=== PATIENT | female | born 1950 | race Caucasian/White ===

== ENCOUNTER 2018-02-04 07:36 | Day surgery (SDC) | payer MEDICARE ==
[2018-02-03 09:47] VITALS: BMI 35.4
[~2018-02-04 07:36] MED LIST: LACTATED RINGERS 1,000 ML IV SCH
[2018-02-04 09:02] VITALS: RESP 16; TEMP 99.2
[2018-02-04] MEDS ORDERED: LIDOCAINE 1% 20 ML VIAL (10MG/ML) FOR IV START INTRADERMA ONE (09:19)
[2018-02-04] MEDS ORDERED: PROPOFOL 10 MG/ML 20 ML VIAL IV ONE (10:00)
--- NOTE | 2018-02-04 10:15 | P.PCN ---
Date of Procedure: 02/04/18 Procedure(s) Performed: BRIEF HISTORY: Patient is a 67-year-old pleasant female, scheduled for an elective colonoscopy as a part of evaluation of prior history of colon polyps. Last colonoscopy was in 5 years ago that showed colon polyps. PROCEDURE PERFORMED: Colonoscopy. PREOPERATIVE DIAGNOSIS: History of colon polyps. IV sedation per Anesthesia. PROCEDURE: After informed consent was obtained, the patient, was brought into the endoscopy unit. IV sedation was administered by Anesthesia under continuous monitoring. Digital rectal examination was normal. Initially the Olympus CF- 160 flexible video colonoscope was then inserted in the rectum, gradually advanced into the cecum without any difficulty. Careful examination was performed as the scope was gradually being withdrawn. Ileocecal valve and the appendiceal orifice were visualized and appeared normal. Prep was excellent. Mucosa of the cecum, ascending colon, transverse colon, descending colon, sigmoid colon, and rectum appeared normal. Sigmoid diverticulosis seen Retroflexion was performed in the rectum and no lesions were seen. The patient tolerated the procedure well. IMPRESSION: Normal-appearing colon from rectum to cecum with no evidence of colonic neoplasia. Scattered sigmoid diverticulosis. RECOMMENDATIONS: Findings of this examination were discussed with the patient as well as her family. She was advised to have a repeat surveillance colonoscopy in 5 years..
[2018-02-04 10:36] VITALS: PULSE 65
[2018-02-04 10:56] VITALS: BP 121/77
== END 2018-02-04 11:13 | disposition home or self-care (01) ==
LOC: ORWHC2ENDO 07:36
PROVIDERS: ATTEND Internal Medicine Gastroenterology
DX: Z12.11 Encounter for screening for malignant neoplasm of colon (principal); K57.30 Diverticulosis of large intestine without perforation or abscess without bleeding; Z86.010 Personal history of colon polyps
CPT/HCPCS: 45378; J2704

== ENCOUNTER → 2018-04-28 | Outpatient (CLI) | payer MEDICARE ==
[2018-04-28 09:35] LABS: Basophils % (A) 1 %; Eosinophils # (A) 0.2 k/uL (0-0.7); Eosinophils % (A) 3 %; HCT 43.1 % (34.0-46.0); HGB 14.3 gm/dL (11.4-16.0); Lymphocytes # (A) 1.4 k/uL (1.0-4.8); Lymphocytes % (A) 25 %; MCH 31.1 pg (25.0-35.0); MCHC 33.3 g/dL (31.0-37.0); MCV 93.5 fL (80.0-100.0); Mean Platelet Volume 7.6; Monocytes # (A) 0.3 k/uL (0-1.0); Monocytes % (A) 5 %; Neutrophils # (A) 3.7 k/uL (1.3-7.7); Neutrophils % (A) 66 %; Platelet Count 192 k/uL (150-450); RBC 4.61 m/uL (3.80-5.40); RDW 12.6 % (11.5-15.5); WBC 5.7 k/uL (3.8-10.6)
[2018-04-28 10:36] LABS: ALT 32 U/L (9-52); AST 26 U/L (14-36); Albumin 4.2 g/dL (3.5-5.0); Alkaline Phosphatase 63 U/L (38-126); Blood Urea Nitrogen 16 mg/dL (7-17); Calcium 9.6 mg/dL (8.4-10.2); Carbon Dioxide 28 mmol/L (22-30); Cholesterol 161 mg/dL (<200); Glucose 103 mg/dL (74-99); HDL Cholesterol 52 mg/dL (40-60); LDL Cholesterol,Calculated 91 mg/dL (0-99); Potassium 4.9 mmol/L (3.5-5.1); Sodium 142 mmol/L (137-145); Total Bilirubin 0.5 mg/dL (0.2-1.3); Total Protein 6.6 g/dL (6.3-8.2); Triglycerides 89 mg/dL (<150)
[2018-04-28 10:37] LABS: Appearance,Urine Cloudy (Clear); Bacteria,Urine Rare /hpf; Bilirubin,Urine Negative (Negative); Blood,Urine Negative (Negative); Color,Urine Light Yellow; Glucose,Urine (UA) Negative (Negative); Ketones,Urine Negative (Negative); Leukocyte Esterase,Urine Large (Negative); Mucus,Urine Rare /hpf; Nitrite,Urine Negative (Negative); PH, Urine 6.5 (5.0-8.0); Protein,Urine Negative (Negative); RBC,Urine 2 /hpf (0-5); Specific Gravity,Urine 1.007 (1.001-1.035); Squamous Epithelial Cell,Urine 1 /hpf (0-4); Urobilinogen,Urine <2.0 mg/dL (<2.0); WBC,Urine 24 /hpf (0-5)
[2018-04-28 10:43] LABS: Anion Gap 10 mmol/L; Chloride 104 mmol/L (98-107)
== END | disposition home or self-care (01) ==
LOC: LABWHC1 08:49
PROVIDERS: ATTEND Family Medicine
DX: Z00.00 Encounter for general adult medical examination without abnormal findings (principal); R10.9 Unspecified abdominal pain; R10.812 Left upper quadrant abdominal tenderness; E66.9 Obesity, unspecified; R41.3 Other amnesia
CPT/HCPCS: 36415; 80053; 80061; 81001; 82607; 84443; 85025

== ENCOUNTER → 2018-05-05 | Outpatient (CLI) | payer MEDICARE ==
--- NOTE | 2018-05-05 13:23 | CT ---
EXAMINATION TYPE: CT abdomen pelvis w con DATE OF EXAM: 05/05/2018 HISTORY: R10.9 left flank pain,R10.812 LUQ tenderness per order. CT DLP: 1252.9mGycm Automated Exposure Control for Dose Reduction was Utilized. CONTRAST: CT scan of the abdomen and pelvis is performed with IV Contrast, patient injected with 100 mL of Isov ue 300. COMPARISON: None. FINDINGS: LUNG BASES: No significant abnormality is appreciated. LIVER/GB: Gallbladder is not visualized and presumed surgically absent. No cholecystectomy clips are noted. PANCREAS: No significant abnormality is seen. SPLEEN: No significant abnormality is seen. ADRENALS: No significant abnormality is seen. KIDNEYS: There is simple appearing 2.0 x 1.4 cm cyst laterally mid pole level left kidney axial image 33 series 7. There is subcentimeter cysts lower pole level right kidney image 45 series 7. Symmetric cortical medullary uptake and excretion is seen from both kidneys BOWEL: Small hiatal hernia is present. Oral contrast reaches level of proximal sigmoid colon. There i s no suspicious small or large bowel dilatation. Normal contrast-filled appendix is seen from cecum. There are diverticula in the sigmoid colon. UTERUS/ADNEXA: Uterus is surgically absent. Small thin-walled fluid collection in pelvic cul-de-sac a xial image 77 is nonspecific with thin rim enhancement, abscess cannot be excluded in appropriate cli nical setting. There is round 3 mm metallic density or foreign body just anterior and superior to thi s axial image 72. Scattered pelvic phleboliths are present. LYMPH NODES: No greater than 1cm abdominal or pelvic lymph nodes are appreciated. OSSEOUS STRUCTURES: There is moderate to severe multilevel spurring in the visualized spine. Spur dis c complex effaces anterior thecal sac at T12-L1 and L1-L2 levels on sagittal image 68. There is multi level facet arthropathy in the mid to lower lumbar spine. OTHER: There is small fat-containing umbilical hernia. IMPRESSION: 1. No significant finding is seen to account for patient's clinical symptoms of left-sided pain. 2. Incidental findings as noted above, attention to small pelvic fluid collection and 3 mm round meta llic pelvic foreign body.
== END | disposition home or self-care (01) ==
LOC: RADCTMAIN 10:41
PROVIDERS: ATTEND Family Medicine
DX: R10.812 Left upper quadrant abdominal tenderness (principal)
CPT/HCPCS: 74177; Q9967

== ENCOUNTER → 2018-09-16 | Outpatient (CLI) | payer MEDICARE ==
--- NOTE | 2018-09-16 15:26 | BD ---
EXAMINATION TYPE: Axial Bone Density DATE OF EXAM: 09/16/2018 COMPARISON: NONE CLINICAL HISTORY: Height: 63 Weight: 204.9 FRAX RISK QUESTIONS: Alcohol (3 or more units per day): no Family History (Parent hip fracture): no Glucocorticoids (More than 3mos): no (Ex: prednisone, prednisolone, methylprednisolone, dexamethasone, and hydrocortisone). History of Fracture in Adulthood: no Secondary Osteoporosis: 1. Type 1 Diabetes: no 2. Hyperthyroidism: no 3. Menopause before 45: no 4. Malnutrition: no 5. Chronic liver disease: no Rheumatoid Arthritis: no Current Tobacco Use: no RISK FACTORS HISTORY OF: Family History of Osteoporosis: no Active: sometimes Diet low in dairy products/other sources of calcium: yes Postmenopausal woman: age 50 Lost more than 2 inches in height since high school: no MEDICATIONS: anti-depressant Additional History: EXAM MEASUREMENTS: Bone mineral densitometry was performed using the [employer] System. Bone mineral density as measured about the Lumbar spine is: ----- L1-L4(G/cm2): 1.408 T Score Values are as follows: ----- L2: 1.3 ----- L3: 1.9 ----- L4: 2.1 ----- L1-L4: 1.9 Bone mineral density : baseline Bone mineral density about the R hip (g/cm2): 0.904 Bone mineral density about the L hip (g/cm2): 0.941 T Score values are as follows: -----R Neck: -1.0 -----L Neck: -0.7 -----R Total: 0.1 -----L Total: 0.2 Bone mineral density : baseline IMPRESSION: No evidence for osteoporosis or osteopenia. NOTE: T-SCORE=SD OF THE YOUNG ADULT MEAN.
--- NOTE | 2018-09-18 12:08 | MM ---
Reason for exam: screening (asymptomatic). Last mammogram was performed 4 years and 6 months ago. History: Patient is postmenopausal and had first child at age 37. Physical Findings: A clinical breast exam by your physician is recommended on an annual basis and results should be correlated with mammographic findings. MG 3D Screening Mammo W/Cad Bilateral CC and MLO view(s) were taken. Prior study comparison: August 13, 2017, mammogram, performed at [facility]. June 06, 2017, mammogram, performed at [facility]. August 07, 2016, mammogram, performed at [facility]. March 04, 2014, CAD bilateral diagnostic mammogram. There are scattered fibroglandular densities. There is no discrete abnormality. No significant changes when compared with prior studies. ASSESSMENT: Negative, BI-RAD 1 RECOMMENDATION: Routine screening mammogram of both breasts in 1 year.
== END ==
LOC: RADMAMWWP 11:35
PROVIDERS: ATTEND Family Medicine
DX: Z12.31 Encounter for screening mammogram for malignant neoplasm of breast (principal); Z13.820 Encounter for screening for osteoporosis
CPT/HCPCS: 77063; 77067; 77080

== ENCOUNTER → 2020-09-18 | Outpatient (CLI) | payer MEDICARE ==
--- NOTE | 2020-09-18 14:42 | BD ---
EXAMINATION TYPE: Axial Bone Density DATE OF EXAM: 09/18/2020 COMPARISON: 09/16/2018 CLINICAL HISTORY: Height: 62.5 IN Weight: 187 LBS RISK FACTORS HISTORY OF: Active: YES Diet low in dairy products/other sources of calcium: YES Postmenopausal woman: TOTAL HYST AGE 51 MEDICATIONS: Additional Medications: ANTI DEPRESSANT EXAM MEASUREMENTS: Bone mineral densitometry was performed using the [employer] System. Bone mineral density as measured about the Lumbar spine is: ----- L1-L4(G/cm2): 1.413 T Score Values are as follows: ----- L2: 1.6 ----- L3: 2.5 ----- L4: 1.9 ----- L1-L4: 1.9 Bone mineral density has: Increased 1.8% since study of: 09/16/2018 Bone mineral density about the R hip (g/cm2): 0.873 Bone mineral density about the L hip (g/cm2): 0.885 T Score values are as follows: -----R Neck: -1.2 -----L Neck: -1.1 -----R Total: -0.6 -----L Total: -0.1 Bone mineral density has: Decreased -5.9% since study of: 09/16/2018 IMPRESSION: No evidence for osteoporosis or osteopenia. NOTE: T-SCORE=SD OF THE YOUNG ADULT MEAN.
--- NOTE | 2020-09-19 13:15 | MM ---
Reason for exam: screening (asymptomatic). Last mammogram was performed 2 years ago. History: Patient is postmenopausal and had first child at age 37. Physical Findings: A clinical breast exam by your physician is recommended on an annual basis and results should be correlated with mammographic findings. MG 3D Screening Mammo W/Cad Bilateral CC and MLO view(s) were taken. Prior study comparison: September 16, 2018, bilateral MG 3d screening mammo w/cad. August 13, 2017, mammogram, performed at [facility]. There are scattered fibroglandular densities. No significant changes when compared with prior studies. ASSESSMENT: Negative, BI-RAD 1 RECOMMENDATION: Routine screening mammogram of both breasts in 1 year.
== END | disposition home or self-care (01) ==
LOC: RADBDWWP 12:31
PROVIDERS: ATTEND Family Medicine
DX: Z12.31 Encounter for screening mammogram for malignant neoplasm of breast (principal); Z78.0 Asymptomatic menopausal state
CPT/HCPCS: 77063; 77067; 77080

== ENCOUNTER → 2020-10-11 | Outpatient (CLI) | payer MEDICARE ==
--- NOTE | 2020-10-11 14:20 | US ---
EXAMINATION TYPE: US abdomen comp/pelvis limited DATE OF EXAM: 10/11/2020 COMPARISON: CT 05/05/2018 CLINICAL HISTORY: R10.10 Upper abd Pain, R10.9 abd pain. intermittent left flank pain for 3-4 years, cholecystectomy EXAM MEASUREMENTS: Liver Length: 14.7 cm Gallbladder Wall: Surgically absent CBD: 0.5 cm Spleen: 9.7 cm Right Kidney: 10.9 x 4.5 x 4.4 cm Left Kidney: 10.8 x 5.3 x 4.6 cm Pancreas: tail obscured by overlying bowel content Liver: appears wnl Gallbladder: Surgically absent CBD: appears wnl as visualized Spleen: wnl Right Kidney: no evidence of hydronephrosis Left Kidney: cystic area = 1.9 x 1.7 x 2.0cm stable compared to prior CT Upper IVC: wnl Abd Aorta: wnl Bladder: appears wnl Bilateral Jets Seen yes IMPRESSION: No acute abnormality. Postop changes.
== END | disposition home or self-care (01) ==
LOC: RADUSWWP 12:11
PROVIDERS: ATTEND Family Medicine
DX: Z90.49 Acquired absence of other specified parts of digestive tract (principal); R10.9 Unspecified abdominal pain; Z98.890 Other specified postprocedural states
CPT/HCPCS: 76700; 76857

== ENCOUNTER → 2022-01-16 | Outpatient (CLI) | payer MEDICARE ==
--- NOTE | 2022-01-16 14:32 | MM ---
Reason for exam: screening (asymptomatic). Last mammogram was performed 1 year and 4 months ago. History: Patient is postmenopausal and had first child at age 37. Physical Findings: A clinical breast exam by your physician is recommended on an annual basis and results should be correlated with mammographic findings. MG 3D Screening Mammo W/Cad Bilateral CC and MLO view(s) were taken. Prior study comparison: September 18, 2020, bilateral MG 3d screening mammo w/cad. September 16, 2018, bilateral MG 3d screening mammo w/cad. There are scattered fibroglandular densities. There is no discrete abnormality. No significant changes when compared with prior studies. ASSESSMENT: Negative, BI-RAD 1 RECOMMENDATION: Routine screening mammogram of both breasts in 1 year.
== END | disposition home or self-care (01) ==
LOC: RADMAMWWP 12:44
PROVIDERS: ATTEND Family Medicine
DX: Z12.31 Encounter for screening mammogram for malignant neoplasm of breast (principal); Z78.0 Asymptomatic menopausal state
CPT/HCPCS: 77063; 77067

== ENCOUNTER → 2023-03-11 | Outpatient (CLI) | payer MEDICARE ==
--- NOTE | 2023-03-11 15:25 | BD ---
EXAMINATION TYPE: Axial Bone Density DATE OF EXAM: 03/11/2023 CLINICAL HISTORY: 72 year old Female. ICD-10 CODE: N95.1 post menopause Height: 63 Weight: 182.2 FRAX RISK QUESTIONS: Alcohol (3 or more units per day): no Family History (Parent hip fracture): no Glucocorticoids (More than 3mos): no (Ex: prednisone, prednisolone, methylprednisolone, dexamethasone, and hydrocortisone). History of Fracture in Adulthood: no Secondary Osteoporosis: 1. Type 1 Diabetes: no 2. Hyperthyroidism: no 3. Menopause before 45: no 4. Malnutrition: no 5. Chronic liver disease: no Rheumatoid Arthritis: no Current Tobacco Use: no RISK FACTORS HISTORY OF: Surgery to Spine/Hip(right/left)/Wrist (right/left): no Family History of Osteoporosis: no Active: no Diet low in dairy products/other sources of calcium: yes Postmenopausal woman: yes Lost more than 2 inches in height since high school: no MEDICATIONS: Additional History: EXAM MEASUREMENTS: Bone mineral densitometry was performed using the [employer] System. Bone mineral density as measured about the Lumbar spine is: ----- L1-L4(G/cm2): 1.350 T Score Values are as follows: ----- L1: 1.1 ----- L2: 0.9 ----- L3: 2.3 ----- L4: 1.3 ----- L1-L4: 1.4 Z Score Values are as follows: ----- L1: 2.3 ----- L2: 2.0 ----- L3: 3.4 ----- L4: 2.4 ----- L1-L4: 2.5 Bone mineral density has: decreased -4.5 % since study of: 09.18.2020 Bone mineral density about the R hip (g/cm2): 0.911 Bone mineral density about the L hip (g/cm2): 0.954 T Score values are as follows: -----R Neck: -1.4 -----L Neck: -1.2 -----R Total: -0.8 -----L Total: -0.4 Z Score values are as follows: -----R Neck: -0.1 -----L Neck: 0.2 -----R Total: 0.3 -----L Total: 0.7 Bone mineral density has: decreased -3.5 % since study of: 09.18.2020 FRAX%s: The graph provided illustrates a 9.6 % chance for a major osteoporotic fx and a 1.4% chance f or the hips probability for fx in 10 years time. IMPRESSION: Normal (Values between +1 and -1 indicate normal bone mass). Consider repeating this study in 5 year s or sooner if there is some new clinical indication. NOTE: T-SCORE=SD OF THE YOUNG ADULT MEAN.
--- NOTE | 2023-03-12 21:02 | MM ---
Reason for Exam: Screening (asymptomatic). Last mammogram was performed 1 year(s) and 2 month(s) ago. Patient History: Menarche at age 13. First Full-Term at age 37. Late child-bearing (after 30). Left ovary removed at age 50. Right ovary removed at age 50. Hysterectomy at age 50. Postmenopausal. Risk Values: Brandi 5 year model risk: 2.4%. NCI Lifetime model risk: 6.6%. Prior Study Comparison: 09/16/2018 Bilateral Screening Mammogram, [facility]. 09/18/2020 Bilateral Screening Mammogram, [facility]. 01/16/2022 Bilateral Screening Mammogram, [facility]. Tissue Density: There are scattered fibroglandular densities. Findings: Analyzed By CAD. There is no suspicious group of microcalcifications or new suspicious mass in either breast. Overall Assessment: Negative, BI-RAD 1 Management: Screening Mammogram of both breasts in 1 year. . Patient should continue monthly self-breast exams. A clinical breast exam by your physician is recommended on an annual basis. This exam should not preclude additional follow-up of suspicious palpable abnormalities. Note on Brandi scores and lifetime risk: 1. A Brandi score greater than 3% is considered moderate risk. If this is the case, consider specialist referral to assess eligibility for a risk reducing agent. 2. If overall lifetime risk for the development of breast cancer is 20% or higher, the patient may qualify for future screening with alternating mammogram and breast MRI. Electronically signed and approved by: Génesis Gutiérrez M.D. Radiologist
== END | disposition home or self-care (01) ==
LOC: RADMAMWWP 14:38
PROVIDERS: ATTEND Family Medicine
DX: Z12.31 Encounter for screening mammogram for malignant neoplasm of breast (principal); N95.1 Menopausal and female climacteric states
CPT/HCPCS: 77063; 77067; 77080

== ENCOUNTER → 2024-03-15 | Outpatient (CLI) | payer MEDICARE ==
--- NOTE | 2024-03-16 18:56 | MM ---
Reason for Exam: Screening (asymptomatic). Last screening mammogram was performed 12 month(s) ago. Patient History: Menarche at age 13. First Full-Term at age 37. Late child-bearing (after 30). Left ovary removed at age 50. Right ovary removed at age 50. Hysterectomy at age 50. Postmenopausal. Risk Values: Brandi 5 year model risk: 2.4%. NCI Lifetime model risk: 6.3%. Prior Study Comparison: 09/18/2020 Bilateral Screening Mammogram, [facility]. 01/16/2022 Bilateral Screening Mammogram, [facility]. 03/11/2023 Bilateral MG 3D screening mammo w/cad, [facility]. Tissue Density: There are scattered areas of fibroglandular density. Findings: Analyzed By CAD. There is no suspicious group of microcalcifications or new suspicious mass in either breast. Overall Assessment: Negative, BI-RAD 1 Management: Screening Mammogram of both breasts in 1 year. . Patient should continue monthly self-breast exams. A clinical breast exam by your physician is recommended on an annual basis. This exam should not preclude additional follow-up of suspicious palpable abnormalities. Note on Brandi scores and lifetime risk: 1. A Brandi score greater than 3% is considered moderate risk. If this is the case, consider specialist referral to assess eligibility for a risk reducing agent. 2. If overall lifetime risk for the development of breast cancer is 20% or higher, the patient may qualify for future screening with alternating mammogram and breast MRI. Electronically signed and approved by: Génesis Gutiérrez M.D. Radiologist
== END | disposition home or self-care (01) ==
LOC: RADMAMWWP 09:59
PROVIDERS: ATTEND Family Medicine
DX: Z12.31 Encounter for screening mammogram for malignant neoplasm of breast (principal); Z78.0 Asymptomatic menopausal state
CPT/HCPCS: 77063; 77067